=== PATIENT | male | born 1930 | race Caucasian/White ===

== ENCOUNTER 2016-07-13 10:42 | Emergency (ER) | payer MEDICARE, OTHER ==
--- NOTE | ~2016-07-13 | EKG ---
PATIENT: CAROL TYSON UNIT #: [id number] Ventricular Rate: 53 BPM Atrial Rate: 53 BPM P-R Interval: 154 ms QRS Duration: 84 ms Q-T Interval: 396 ms QTC Calculation(Bezet): 371 ms P [place]: 42 degrees Calculated R [place]: -14 degrees Calculated T [place]: 1 degrees Diagnosis Line: Sinus bradycardia Diagnosis Line: Voltage criteria for left ventricular hypertrophy Diagnosis Line: Otherwise normal ECG Diagnosis Line: Diagnosis Line: Reconfirmed by ALEJANDRA NEVAREZ MD ([id number]) on Diagnosis Line: 07/14/2016 10:01:46 AM INTERPRETING MD: ROQUE MONREAL
--- NOTE | ~2016-07-13 | CR63 ---
[facility] A Service of [facility] RADIOLOGY TEXT RESULTS PATIENT: CAROL TYSON LOCATION: [facility] : 31 UNIT #: [id number] AGE: [address]: Thelma Barillas MD SEX: M ORDER DR: [id number] [facility] [address] [facility]. [place], [place] [address] [id number] E MR#: [id number] Acc #: [id number] NAME: CAROL TYSON : 1930 SEX: M STUDY DATE/TIME: 07/13/2016 12:44 UNIT: [facility] ROOM: STUDY DESCRIPTION: CR Chest 2 View Attending Physician: Thelma Barillas M.D. Ordering Physician: Keagan Rebolledo M.D. Primary Care Physician: No Primary Care Physician MEDICAL IMAGING REPORT This report is preliminary unless electronic signature is present EXAM Chest, 2 views, 07/13/2016, 1244 hours. CLINICAL HISTORY 3-day history of chest pain, shortness of air, and shoulder pain. COMPARISON 11/29/2015 FINDINGS Upright PA and lateral views of the chest demonstrate normal heart size with a stable tortuous aorta. Lungs are well expanded with mild reticulonodular scarring in the right upper lobe, unchanged. There is no acute pulmonary density or pleural effusion. No acute bone lesion. Postop change left shoulder replacement. IMPRESSION 1. Normal heart size with stable tortuous aorta. 2. There is mild reticulonodular scarring in the right upper lung, unchanged. There are no acute pulmonary or pleural findings. Dictated by... Lashaun Davis M.D. THIS IS AN ELECTRONICALLY VERIFIED REPORT Lashaun Davis M.D. at 07/13/2016 2:29 PM JONAH/christal TD: 07/13/2016 14:17 JOB #: [id number] [facility] A Service of [facility] RADIOLOGY TEXT RESULTS PATIENT: CAROL TYSON LOCATION: [facility] : 31 UNIT #: [id number] AGE: [address]: Thelma Barillas MD SEX: M ORDER DR: MEDICAL IMAGING REPORT Page 1 of 1 COPY
--- NOTE | ~2016-07-13 | CR229 ---
[facility] A Service of [facility] RADIOLOGY TEXT RESULTS PATIENT: CAROL TYSON LOCATION: [facility] : 31 UNIT #: [id number] AGE: [address]: Thelma Barillas MD SEX: M ORDER DR: [id number] [place] [address] [facility]. [place], [place] [address] [id number] E MR#: [id number] Acc #: [id number] NAME: CAROL TYSON : 1930 SEX: M STUDY DATE/TIME: 07/13/2016 UNIT: [facility] ROOM: STUDY DESCRIPTION: CR Shoulder Min 2 View Lt Attending Physician: Thelma Barillas M.D. Ordering Physician: Keagan Rebolledo M.D. Primary Care Physician: No Primary Care Physician MEDICAL IMAGING REPORT This report is preliminary unless electronic signature is present EXAM Left shoulder 3 views 07/13/2016 1248 hours HISTORY Left shoulder pain for 7 months. No acute injury. COMPARISON None FINDINGS AP views in internal and external rotation and a scapula Y-view demonstrate postop change of a left shoulder replacement with a screwed ball component at the glenoid and a long stem humeral component in anatomic alignment. There is no fracture or dislocation. The acromioclavicular joint is normal. The upper ribs are intact. IMPRESSION Postop change, left shoulder replacement, as described above. There is no fracture, dislocation or hardware failure. Dictated by... Lashaun Davis M.D. THIS IS AN ELECTRONICALLY VERIFIED REPORT Lashaun Davis M.D. at 07/13/2016 2:29 PM JONAH/lázaro TD: 07/13/2016 14:10 JOB #: [id number] MEDICAL IMAGING REPORT [facility] A Service [facility] RADIOLOGY TEXT RESULTS PATIENT: CAROL TYSON LOCATION: [facility] : 31 UNIT #: [id number] AGE: [address]: Thelma Barillas MD SEX: M ORDER DR: Page 1 of 1 COPY
--- NOTE | ~2016-07-13 | EKG ---
PATIENT: CAROL TYSON UNIT #: [id number] Ventricular Rate: 53 BPM Atrial Rate: 53 BPM P-R Interval: 154 ms QRS Duration: 84 ms Q-T Interval: 396 ms QTC Calculation(Bezet): 371 ms P [place]: 42 degrees Calculated R [place]: -14 degrees Calculated T [place]: 1 degrees Diagnosis Line: Sinus bradycardia Diagnosis Line: Voltage criteria for left ventricular hypertrophy Diagnosis Line: Abnormal ECG Diagnosis Line: Diagnosis Line: Confirmed by ALEJANDRA NEVAREZ MD ([id number]) on 07/14/2016 Diagnosis Line: 10:01:24 AM INTERPRETING MD: ROQUE MONREAL
[~2016-07-13 10:42] MED LIST: ARICEPT5 M1 PO; LISINOPRIL-HCTZ1 T14 PO; MOTRIN600 M2 PO; NEURONTIN300 MG PO; NORVASC PO; PROTONIX PO
[2016-07-13 12:03] LABS: BASOPHIL# 0.1 X10e3 (0-0.3); BASOPHIL% 1.2 % (0-2.5); EOSINOPHIL# 0.6 X10e3 (0-0.7); EOSINOPHIL% 8.3 % (0.0-7.0); HEMOGLOBIN 12.7 gm/dL (13.0-16.0); LYMPHOCYTE% 41.4 % (17.0-45.0); MEAN CELL VOLUME 91.8 FL (83-96); MEAN CORPUSCULAR HEMOGLOBIN 29.8 PG (28-34); MEAN CORPUSCULAR HGB CONC 32.5 g/dL (30-36); MEAN PLATELET VOLUME 7.9 FL (6.5-11.5); MONOCYTE# 0.7 X10e3 (0-1.0); MONOCYTE% 9.9 % (3.0-12.0); NEUTROPHIL# 2.8 X10e3 (1.5-7.1); NEUTROPHIL% 39.2 % (40-75); PLATELET COUNT 214 X10e3 (140-420); RED BLOOD COUNT 4.25 X10e (3.90-5.60); RED CELL DISTRIBUTION WIDTH 14.6 % (11.0-15.5); WHITE BLOOD COUNT 7.2 X10e3 (4.0-10.5)
[2016-07-13 12:04] LABS: DIFF IND NO
[2016-07-13 12:26] LABS: POC - CKMB 3.5 ng/mL (0.0-7.9); POC - TROPONIN <0.05 ng/mL (<=0.05)
[2016-07-13 13:09] LABS: BUN/CREATININE RATIO 22.72; CALCIUM SERUM 8.9 mg/dL (8.4-10.2); CREATININE SERUM 1.1 mg/dL (0.6-1.4); GLOM FILT RATE Estimated 61.3 mL/min (>60); POTASSIUM 4.6 mmol/L (3.5-5.1)
== END 2016-07-13 14:10 | disposition home or self-care (01) ==
LOC: CED 10:42
PROVIDERS: Emergency Medicine
DX: M25.512 Pain in left shoulder (principal); I10 Essential (primary) hypertension; Z98.890 Other specified postprocedural states; Z88.8 Allergy status to other drugs, medicaments and biological substances
CPT/HCPCS: 36415; 71020; 73030; 80048; 82553; 84484; 85025; 93005; 96374; 96375; 99284; J2270; J2405

== ENCOUNTER 2016-08-19 15:52 | Observation (INO) | payer MEDICARE, OTHER ==
--- NOTE | ~2016-08-19 | CR72 ---
[facility] A Service of [facility] RADIOLOGY TEXT RESULTS PATIENT: CAROL TYSON LOCATION: [place] [address] : [birth year] UNIT #: [id number] AGE: [address]: FORTUNATO CORRAL MD SEX: M ORDER DR: [id number] [facility] [address] [facility]. [place], [place] [address] [id number] P MR#: [id number] Acc #: [id number] NAME: CAROL TYSON : 1930 SEX: M STUDY DATE/TIME: 08/19/2016 16:33 UNIT: [facility] ROOM: STUDY DESCRIPTION: CR Chest Single View Portable Attending Physician: Nathan Lao M.D. Ordering Physician: Nathan Lao M.D. Primary Care Physician: No Primary Care Physician MEDICAL IMAGING REPORT This report is preliminary unless electronic signature is present EXAMINATION AP portable chest. DATE 08/19/2016 HISTORY Hypotension, weakness and shortness of breath with activities since 08/19/2016. COMPARISON PA and lateral chest, 07/13/2016. FINDINGS No acute airspace disease. Heart size is stable and within normal limits. Thoracic aorta appears ectatic and tortuous but unchanged. No pleural effusion. No pneumothorax. Left shoulder replacement. Faint reticular nodular changes are demonstrated in the right apex and right lower lung zone, thought to be unchanged from prior. IMPRESSION 1. No acute chest findings. 2. Stable thoracic aortic tortuosity. 3. Left shoulder replacement. Dictated by... Jojo Copeland M.D. THIS IS AN ELECTRONICALLY VERIFIED REPORT Jojo Copeland M.D. at 08/20/2016 6:[address] [facility]/t [facility] A Service of [facility] RADIOLOGY TEXT RESULTS PATIENT: CAROL TYSON LOCATION: [facility] : 31 UNIT #: [id number] AGE: [address]: FORTUNATO CORRAL MD SEX: M ORDER DR: TD: 08/19/2016 17:56 JOB #: [id number] MEDICAL IMAGING REPORT Page 1 of 1 COPY
--- NOTE | ~2016-08-19 | EKG ---
PATIENT: NIMESH TYSONDonna UNIT #: [id number] Ventricular Rate: 73 BPM Atrial Rate: 73 BPM P-R Interval: 158 ms QRS Duration: 90 ms Q-T Interval: 368 ms QTC Calculation(Bezet): 405 ms P [place]: 69 degrees Calculated R [place]: 24 degrees Calculated T [place]: 71 degrees Diagnosis Line: Normal sinus rhythm with sinus arrhythmia Diagnosis Line: ST elevation, consider early repolarization, Diagnosis Line: pericarditis, or injury Diagnosis Line: Confirmed by JES VÁZQUEZ MD ([id number]) on Diagnosis Line: 08/20/2016 4:02:42 PM INTERPRETING MD: KAR
--- NOTE | ~2016-08-19 | HP ---
Unit #: [id number] #: [id number] Patient: CAROL TYSON [id number] [address] [place], [place] [address] [id number] E MR#: [id number] NAME: CAROL TYSON ROOM: Age: 86 Sex: M Admission Date: 08/19/2016 : 1930 Attending Physician: Nathan Lao M.D. Primary Care Physician: No Primary Care Physician HISTORY AND PHYSICAL CHIEF COMPLAINT Weakness. HISTORY OF PRESENT ILLNESS The patient is an 84-year-old Haitian-speaking male who was brought to the emergency room complaining of the weakness. The patient stated the patient had a surgery seven months ago and has been following with the physical therapy. The patient was seen in the physical therapy earlier today and went home. The patient went to the laundry and was trying to put the coins in the machine and then noted the weakness. The patient sat down and was unable to get up. On arrival to the emergency room the patient's blood pressure was 75/47 and the patient was found to be in acute kidney injury with a creatinine of 2.1. The patient is being admitted for the above reasons. Patient denies any nausea or vomiting or chills. The patient has recurrent falls and is awaiting the electrical chair from the PCP. PAST MEDICAL HISTORY Chronic back pain, dementia, hypertension. PAST SURGICAL HISTORY Cataract surgery, hernia surgery, testicular surgery, eye surgery, SOCIAL HISTORY The patient stopped smoking 20 years ago, denies any alcohol or any illicit drug abuse. FAMILY HISTORY Reviewed and none. ALLERGIES Aspirin. HOME MEDICATIONS He is on Tylenol, donepezil, Flonase, hydrocodone, loratadine, nystatin. REVIEW OF SYMPTOMS Fourteen-point review of symptoms performed and only pertinent positive findings as described above, remaining are negative. PHYSICAL EXAMINATION GENERAL APPEARANCE: On examination the patient is lying on a bed not in acute distress. VITAL SIGNS: Temperature is 98.1, pulse 85, respiratory rate 18, blood Unit #: [id number] #: [id number] Patient: CAROL TYSON pressure 75/47, responding to the fluids, sating 97% at room air. HEENT: Head atraumatic/normocephalic. Pupils equal, round and reacting to light and accommodation. Extraocular movements are intact. Dry mucous membrane. NECK: Supple. LUNGS: Decreased air entry at the bases. HEART: Regular rate and rhythm. ABDOMEN: Soft, positive bowel sounds. EXTREMITIES: No cyanosis. No clubbing. NEUROLOGIC: Alert, awake, oriented. No gross focal motor deficit. DIAGNOSTIC STUDIES LABORATORY DATA: Troponin less than 0.05, WBC 7.4, hemoglobin 12.3, hematocrit 37.5, platelets 175, lactic acid is 1.1, sodium 133, potassium 4.5, bicarb 21, glucose 146, BUN 41, creatinine 2.1, calcium 8.6, CK 381, INR is 1. IMAGING: A chest x-ray shows no acute chest findings. Stable thoracic aorta tortuosity. Left shoulder replacement. CARDIOVASCULAR: EKG shows normal sinus rhythm with 73 beats per minute. No acute ST/T changes. ASSESSMENT 1. Weakness. 2. Acute kidney injury. 3. Hyponatremia. PLAN Plan to admit the patient to observation with the telemetry. Continue with the IV fluids at normal saline 75 mL per hour. Repeat the labs again in the morning and check the UA with the cultures and further recommendations will follow. Dictated by Harsh Espitia/anna TD: 08/19/2016 19:25 JOB #: [id number] HISTORY AND PHYSICAL Page 1 of 1 X FORTUNATO CORRAL MD X HISTORY AND PHYSICAL
--- NOTE | ~2016-08-19 | DS ---
Unit #: [id number] #: [id number] Patient: CAROL TYSON [id number] [address] [address] [id number] I MR#: [id number] NAME: CAROL TYSON ROOM: 56 Age: 86 Sex: M Admission Date: 08/19/2016 : 1930 Discharge Date: 08/20/2016 Attending Physician: Beverly Charles M.D. Primary Care Physician: No Primary Care Physician DISCHARGE SUMMARY REASON FOR ADMISSION Weakness, acute kidney injury, hypotension. HISTORY OF PRESENT ILLNESS/HOSPITAL COURSE The patient is a very pleasant 86-year-old Nepalese-speaking male who presented to the ER with a blood pressure of 75/47, a creatinine of 2.1, as well as profound weakness. Apparently he has recently had left shoulder surgery. Details are unclear. He states that he lives at home alone. Family members state that he was weaker than usual and, thus brought into the hospital for further evaluation. Initially, as mentioned above, his creatinine was elevated. This morning his creatinine currently stands at 1.3, GFR at approximately 50. His CBC shows hemoglobin of 11, white count of 5.7. PT and OT services have already seen and evaluated the patient and felt as though he is currently at his baseline functional status. No further recommendations have been made. His urinalysis was also performed and was clear. At this point in time the patient is clinically stable for discharge. His acute kidney injury is now resolved. His blood pressure is now more stable. His systolic this morning is now ranging in the 130s. At time of discharge appropriate medication adjustments have been made. Please see below for details. FINAL DISCHARGE DIAGNOSES 1. Acute kidney injury, now resolved. 2. Hypotension, now resolved. 3. Weakness, chronic deconditioning. 4. Allergic rhinitis. 5. Mild dementia, per report. FINAL DISCHARGE MEDICATIONS 1. Tylenol 650 mg p.o. q.8 p.r.n. 2. Flonase 1-2 squirts each nostril daily. 3. Claritin 10 mg p.o. q.a.m. 4. Aricept 10 mg p.o. daily. DISCHARGE CONDITION Stable. DISCHARGE DISPOSITION Home. Unit #: [id number] #: [id number] Patient: CAROL TYSON FOLLOW UP Please note the patient did refuse home health services at time of discharge. He states he will follow up with his primary care provider to discuss obtaining an electric wheelchair, as well as the benefits of home health. Dictated by... Harsh Alcantar/carlos TD: 08/23/2016 08:18 JOB #: [id number] DISCHARGE SUMMARY Page 1 of 1 X Beverly Charles MD X DISCHARGE SUMMARY
[2016-08-19 16:22] LABS: POC - CKMB 15.8 ng/mL (0.0-7.9); POC - TROPONIN <0.05 ng/mL (<=0.05)
[2016-08-19 16:55] LABS: BASOPHIL# 0.1 X10e3 (0-0.3); BASOPHIL% 0.7 % (0-2.5); EOSINOPHIL# 0.2 X10e3 (0-0.7); EOSINOPHIL% 2.7 % (0.0-7.0); HEMATOCRIT 37.5 % (38.0-50.0); HEMOGLOBIN 12.3 gm/dL (13.0-16.0); LYMPHOCYTE# 2.3 X10e3 (1.0-3.5); LYMPHOCYTE% 31.3 % (17.0-45.0); MEAN CELL VOLUME 93.1 FL (83-96); MEAN CORPUSCULAR HEMOGLOBIN 30.5 PG (28-34); MEAN CORPUSCULAR HGB CONC 32.7 g/dL (30-36); MEAN PLATELET VOLUME 8.6 FL (6.5-11.5); MONOCYTE# 0.5 X10e3 (0-1.0); MONOCYTE% 6.9 % (3.0-12.0); NEUTROPHIL# 4.3 X10e3 (1.5-7.1); NEUTROPHIL% 58.4 % (40-75); PLATELET COUNT 175 X10e3 (140-420); RED BLOOD COUNT 4.03 X10e (3.90-5.60); RED CELL DISTRIBUTION WIDTH 14.4 % (11.0-15.5); WHITE BLOOD COUNT 7.4 X10e3 (4.0-10.5)
[2016-08-19 16:56] LABS: DIFF IND NO
[2016-08-19 17:08] LABS: PARTIAL THROMBOPLASTIN TIME 21.5 SECONDS (23.5-31.3); PROTHROMBIN TIME (PATIENT) 11.1 SECONDS (10.0-11.7)
[2016-08-19 17:18] LABS: ALBUMIN SERUM 3.9 g/dL (3.5-5.0); ALKALINE PHOSPHATASE 61 U/L (32-92); ALT (SGPT) 20 U/L (10-40); AST (SGOT) 34 U/L (10-42); BILIRUBIN, DIRECT <0.1 mg/dL (0.0-0.2); BILIRUBIN,INDIRECT 0.5 mg/dL (0.0-0.9); BILIRUBIN,TOTAL 0.6 mg/dL (0.2-2.0); BLOOD UREA NITROGEN 41 mg/dL (9-23); BUN/CREATININE RATIO 19.52; CALCIUM SERUM 8.6 mg/dL (8.4-10.2); CARBON DIOXIDE 21 mmol/L (22-31); CHLORIDE 106 mmol/L (100-111); CPK (CREATINE PHOSPHOKINASE) 381 IU/L (36-174); CREATININE SERUM 2.1 mg/dL (0.6-1.4); GLOM FILT RATE Estimated 27.9 mL/min (>60); GLUCOSE FASTING 146 mg/dL (70-110); POTASSIUM 4.5 mmol/L (3.5-5.1); PROTEIN TOTAL SERUM 6.9 g/dL (6.0-8.3); SODIUM 133 mmol/L (135-145)
[2016-08-19] MEDS ORDERED: NORVASC2.5 MG PO (17:30)
[2016-08-19] MEDS ORDERED: PATIENT'S PHARMACY (17:31)
[2016-08-19] MEDS ORDERED: DONEPEZIL HCL10 MG PO (17:32)
[2016-08-19] MEDS ORDERED: FLONASE ALLERG9.9 ML (17:32)
[2016-08-19] MEDS ORDERED: ARTHRITIS PAIN650 M3 PO (17:32)
[2016-08-19] MEDS ORDERED: ALLERCLEAR10 MG PO (17:33)
[2016-08-19] MEDS ORDERED: HYDROCODON-ACE1 EAC5 PO (17:33)
[2016-08-19] MEDS ORDERED: NYSTATIN100000 UN1 PO (17:34)
[2016-08-19 20:51] LABS: URINE SOURCE CLEAN CATCH
[2016-08-19 21:11] LABS: URINE APPEARANCE CLEAR; URINE BILIRUBIN NEG (NEG); URINE BLOOD NEG (NEG); URINE COLOR DK YELLOW; URINE GLUCOSE NEG (NEG); URINE KETONE NEG (NEG); URINE LEUKOCYTE ESTERASE NEG (NEG); URINE NITRATE NEG (NEG); URINE PROTEIN NEG (NEG); URINE SPECIFIC GRAVITY 1.022 (1.003-1.035); URINE UROBILINOGEN 0.2 MG/DL (NEG)
[2016-08-19 21:13] LABS: CULTURE INDICATED? NO
[2016-08-20 05:03] LABS: BASOPHIL# 0.1 X10e3 (0-0.3); BASOPHIL% 0.9 % (0-2.5); EOSINOPHIL# 0.2 X10e3 (0-0.7); EOSINOPHIL% 3.9 % (0.0-7.0); LYMPHOCYTE# 2.4 X10e3 (1.0-3.5); LYMPHOCYTE% 42.1 % (17.0-45.0); MEAN CELL VOLUME 92.5 FL (83-96); MEAN CORPUSCULAR HEMOGLOBIN 30.8 PG (28-34); MEAN CORPUSCULAR HGB CONC 33.3 g/dL (30-36); MEAN PLATELET VOLUME 8.5 FL (6.5-11.5); MONOCYTE# 0.5 X10e3 (0-1.0); MONOCYTE% 9.5 % (3.0-12.0); NEUTROPHIL# 2.5 X10e3 (1.5-7.1); NEUTROPHIL% 43.6 % (40-75); PLATELET COUNT 162 X10e3 (140-420); RED BLOOD COUNT 3.56 X10e (3.90-5.60); RED CELL DISTRIBUTION WIDTH 14.6 % (11.0-15.5); WHITE BLOOD COUNT 5.7 X10e3 (4.0-10.5)
[2016-08-20 05:08] LABS: DIFF IND NO
[2016-08-20 06:18] LABS: BUN/CREATININE RATIO 26.92; CALCIUM SERUM 8.4 mg/dL (8.4-10.2); CREATININE SERUM 1.3 mg/dL (0.6-1.4); GLOM FILT RATE Estimated 49.8 mL/min (>60); POTASSIUM 4.5 mmol/L (3.5-5.1)
== END 2016-08-20 15:57 | disposition home or self-care (01) ==
LOC: CED 15:52 → C5C 18:37 → CEDOF 18:37 → CED 18:49 → CEDOF 21:56 → C5C 21:56
PROVIDERS: Emergency Medicine; Internal Medicine
DX: N17.9 Acute kidney failure, unspecified (principal); I95.9 Hypotension, unspecified; R53.1 Weakness; J30.9 Allergic rhinitis, unspecified; F03.90 Unspecified dementia, unspecified severity, without behavioral disturbance, psychotic disturbance, mood disturbance, and anxiety; E87.1 Hypo-osmolality and hyponatremia; Z23 Encounter for immunization; Z87.891 Personal history of nicotine dependence; Z88.6 Allergy status to analgesic agent; Z86.79 Personal history of other diseases of the circulatory system
CPT/HCPCS: 36415; 71010; 80048; 80076; 81003; 82550; 82553; 83605; 84484; 85025; 85610; 85730; 87040; 90732; 93005; 94760; 96360; 97161; 97166; 99285; G0009; G0378; G8978-GP; G8979-GP; G8980-GP; G8987-GO; G8988-GO; G8989-GO

== ENCOUNTER 2016-10-12 16:10 | Emergency (ER) | payer MEDICARE, OTHER ==
--- NOTE | ~2016-10-12 | EKG ---
PATIENT: CAROL TYSON UNIT #: [id number] Ventricular Rate: 61 BPM Atrial Rate: 61 BPM P-R Interval: 160 ms QRS Duration: 84 ms Q-T Interval: 394 ms QTC Calculation(Bezet): 396 ms P [place]: 60 degrees Calculated R [place]: 12 degrees Calculated T [place]: 47 degrees Diagnosis Line: Sinus rhythm with Premature atrial complexes Diagnosis Line: Otherwise normal ECG Diagnosis Line: Diagnosis Line: Confirmed by BELINDA COLEY MD ([id number]) on 10/13/2016 Diagnosis Line: 12:09:14 AM INTERPRETING MD: VIANCA MONREAL
[~2016-10-12 16:10] MED LIST changes: +ALLERCLEAR10 MG PO; +ARTHRITIS PAIN650 M3 PO; +DONEPEZIL HCL10 MG PO; +FLONASE ALLERG9.9 ML; +HYDROCODON-ACE1 EAC5 PO; +NORVASC2.5 MG PO; +NYSTATIN100000 UN1 PO; +PATIENT'S PHARMACY
[2016-10-12 17:24] LABS: BASOPHIL# 0.1 X10e3 (0-0.3); DIFF IND NO; EOSINOPHIL# 0.2 X10e3 (0-0.7); EOSINOPHIL% 3.4 % (0.0-7.0); HEMATOCRIT 32.5 % (38.0-50.0); HEMOGLOBIN 11.1 gm/dL (13.0-16.0); LYMPHOCYTE# 1.6 X10e3 (1.0-3.5); LYMPHOCYTE% 26.2 % (17.0-45.0); MEAN CELL VOLUME 91.9 FL (83-96); MEAN CORPUSCULAR HEMOGLOBIN 31.5 PG (28-34); MEAN CORPUSCULAR HGB CONC 34.3 g/dL (30-36); MEAN PLATELET VOLUME 7.9 FL (6.5-11.5); MONOCYTE# 0.6 X10e3 (0-1.0); MONOCYTE% 10.2 % (3.0-12.0); NEUTROPHIL# 3.6 X10e3 (1.5-7.1); NEUTROPHIL% 59.2 % (40-75); PLATELET COUNT 180 X10e3 (140-420); RED BLOOD COUNT 3.54 X10e (3.90-5.60); RED CELL DISTRIBUTION WIDTH 14.6 % (11.0-15.5); WHITE BLOOD COUNT 6.1 X10e3 (4.0-10.5)
[2016-10-12 17:51] LABS: ALBUMIN SERUM 3.5 g/dL (3.5-5.0); ALKALINE PHOSPHATASE 65 U/L (32-92); ALT (SGPT) 17 U/L (10-40); AST (SGOT) 29 U/L (10-42); BILIRUBIN,TOTAL 0.4 mg/dL (0.2-2.0); BLOOD UREA NITROGEN 20 mg/dL (9-23); BUN/CREATININE RATIO 16.66; CALCIUM SERUM 8.6 mg/dL (8.4-10.2); CARBON DIOXIDE 25 mmol/L (22-31); CHLORIDE 107 mmol/L (100-111); CREATININE SERUM 1.2 mg/dL (0.6-1.4); GLOM FILT RATE Estimated 54.8 mL/min (>60); GLUCOSE FASTING 105 mg/dL (70-110); POTASSIUM 4.1 mmol/L (3.5-5.1); PROTEIN TOTAL SERUM 6.3 g/dL (6.0-8.3); SODIUM 138 mmol/L (135-145)
[2016-10-12 17:53] LABS: BILIRUBIN, DIRECT <0.1 mg/dL (0.0-0.2); BILIRUBIN,INDIRECT 0.3 mg/dL (0.0-0.9)
[2016-10-12 19:20] LABS: URINE SOURCE CLEAN CATCH
[2016-10-12 19:37] LABS: URINE APPEARANCE CLEAR; URINE BILIRUBIN NEG (NEG); URINE BLOOD NEG (NEG); URINE COLOR YELLOW; URINE GLUCOSE NEG (NEG); URINE KETONE NEG (NEG); URINE LEUKOCYTE ESTERASE NEG (NEG); URINE NITRATE NEG (NEG); URINE PROTEIN NEG (NEG); URINE SPECIFIC GRAVITY 1.019 (1.003-1.035); URINE UROBILINOGEN 0.2 MG/DL (NEG)
[2016-10-12 19:47] LABS: CULTURE INDICATED? NO
== END 2016-10-12 20:45 | disposition home or self-care (01) ==
LOC: CED 16:10
PROVIDERS: Emergency Medicine
DX: I95.9 Hypotension, unspecified (principal); Z88.6 Allergy status to analgesic agent; Z98.890 Other specified postprocedural states
CPT/HCPCS: 36415; 80048; 80076; 81003; 83605; 85025; 93005; 96360; 99285

== ENCOUNTER 2016-11-01 10:37 | Emergency (ER) | payer MEDICARE, OTHER ==
[~2016-11-01] VITALS: Ht 170.2 cm; Wt 58.6 kg
== END 2016-11-01 12:21 | disposition home or self-care (01) ==
LOC: CED 10:37
DX: I10 Essential (primary) hypertension (principal); Z98.890 Other specified postprocedural states; Z88.8 Allergy status to other drugs, medicaments and biological substances
CPT/HCPCS: 99284